=== PATIENT | male | born 1950 | race Hispanic/Latino ===

== ENCOUNTER 2021-11-14 09:32 | Outpatient (CLI) | payer OTHER | END 2021-11-14 09:33 | disposition home or self-care (01) | LOC: EDBD 09:32 → CSHWCC 09:32 | PROVIDERS: ATTEND Nurse Practitioner Family | DX: I87.2 Venous insufficiency (chronic) (peripheral) (principal); E11.621 Type 2 diabetes mellitus with foot ulcer; E11.52 Type 2 diabetes mellitus with diabetic peripheral angiopathy with gangrene; L97.516 Non-pressure chronic ulcer of other part of right foot with bone involvement without evidence of necrosis; L97.513 Non-pressure chronic ulcer of other part of right foot with necrosis of muscle; E11.65 Type 2 diabetes mellitus with hyperglycemia; E78.5 Hyperlipidemia, unspecified; G89.29 Other chronic pain; I10 Essential (primary) hypertension; M86.171 Other acute osteomyelitis, right ankle and foot; R60.0 Localized edema | CPT/HCPCS: 97139; G0463; 99203 ==

== ENCOUNTER 2021-11-28 11:31 | Outpatient (CLI) | payer OTHER | END 2021-11-28 11:32 | disposition home or self-care (01) | LOC: CSHRAD 11:31 | PROVIDERS: ATTEND Nurse Practitioner Family | DX: I10 Essential (primary) hypertension (principal) | CPT/HCPCS: 71046 ==